=== PATIENT | male | born 1995 | race Caucasian/White ===

== ENCOUNTER 2021-05-14 11:59 | Observation (INO) ==
[2021-05-14] MEDS ORDERED: Naloxone 0.4 MG/ML INJ IVP PRN ×2 (14:27→19:57)
[2021-05-14] MEDS ORDERED: Melatonin 3 MG TABLET PO PRN ×2 (14:27→19:57)
[2021-05-14] MEDS ORDERED: Ampicillin/Sulbactam 3,000 MG in 0.9 % Sodium Chloride Mini Bag 100 ML IVPB SCH (15:00)
[2021-05-14] MEDS ORDERED: Famotidine 20 MG/2 ML VIAL IVP ONE (16:37)
[2021-05-14] MEDS ORDERED: Acetaminophen IV 1,000 MG/100 ML BAG IVPB ONE (16:38)
[2021-05-14] MEDS ORDERED: *HR* FentaNYL (PF) 100 MCG/2 ML VIAL ONE (17:12)
[2021-05-14] MEDS ORDERED: *HR* Midazolam HCl 2 MG/2 ML VIAL ONE (17:12)
[2021-05-14] MEDS ORDERED: *HR* Propofol 200 MG/20 ML VIAL IVP ONE ×2 (17:13→17:15)
[2021-05-14] MEDS ORDERED: Lidocaine HCL 4 ML Topical Solution (Laryng-O-Jet Kit Sterile Pak) TP ONE (17:15)
[2021-05-14] MEDS ORDERED: Ondansetron 4 MG/2 ML VIAL ONE (17:15)
[2021-05-14] MEDS ORDERED: *HR* Rocuronium Bromide 50 MG/5 ML VIAL ONE ×2 (17:15→17:54)
[2021-05-14] MEDS ORDERED: Lidocaine -MPF 2% 5 ML VIAL ONE ×2 (17:15→17:46)
[2021-05-14] MEDS ORDERED: Ondansetron 4 MG/2 ML VIAL IVP PRN ×2 (17:43→19:57)
[2021-05-14] MEDS ORDERED: *HR* HYDROmorphone PF 0.5 MG/0.5 ML SYRINGE IVP PRN (17:43)
[2021-05-14] MEDS ORDERED: *HR* HYDROMORPHONE 2 MG/ML VIAL ONE (17:49)
[2021-05-14] MEDS ORDERED: *HR* HYDROcodone/Acet 5/325 mg TABLET PO PRN (20:00)
[2021-05-14] MEDS ORDERED: lisinopriL 10 MG TABLET PO SCH ×2 (21:00)
[2021-05-14] MEDS: Ampicillin/Sulbactam 3,000 MG in 0.9 % Sodium Chloride Mini Bag 100 ML IVPB SCH (21:08)
[2021-05-14] MEDS: Cholecalciferol (D-3) 1,000 UNIT (25MCG) TABLET PO SCH (22:51)
[2021-05-15] MEDS: Ampicillin/Sulbactam 3,000 MG in 0.9 % Sodium Chloride Mini Bag 100 ML IVPB SCH ×2 (03:02→08:30)
[2021-05-15] MEDS: *HR* HYDROcodone/Acet 5/325 mg TABLET PO PRN ×2 (03:11→09:24)
[2021-05-15 05:47] LABS: Basophils % 0.1 %; Hematocrit 43.6 % (37.5-50.1); Hemoglobin 14.3 g/dL (12.9-16.9); Immature Granulocytes % 0.5 % (0-4); Lymphocytes % 13.5 %; Mean Corpuscular HGB Conc 32.8 g/dL (31.6-35.5); Mean Corpuscular Hemoglobin 28.8 pg (28.0-33.3); Mean Corpuscular Volume 87.9 fL (83.0-100.0); Mean Platelet Volume 10.1 fL (9.4-12.4); Monocytes % 6.8 %; Neutrophils # 11.4 K/mcL (1.6-8.9); Platelet Count 247 K/mcL (140-400); Red Blood Count 4.96 M/mcL (4.19-5.50); Red Cell Distribution Width 13.3 % (11.5-14.5); Segmented Neutrophils % 79.1 %; White Blood Count 14.5 K/mcL (4.3-11.1)
[2021-05-15] MEDS: Cholecalciferol (D-3) 1,000 UNIT (25MCG) TABLET PO SCH (08:29)
[2021-05-15] MEDS ORDERED: lisinopriL 10 MG TABLET PO SCH (09:00)
[2021-05-15 11:26] VITALS: BP 117/74; PULSE 85; TEMP 97.8; O2SAT 97
[2021-05-15] MEDS ORDERED: *HR* HYDROcodone/Acet 5/325 mg TABLET PO ONE (11:53)
== END 2021-05-15 13:30 | disposition home or self-care (01) ==
LOC: 3BNU → SUATTDRO 12:49 → 3ANU 13:46
PROVIDERS: ADMIT Internal Medicine; ATTEND Internal Medicine